=== PATIENT | female | born 1960 | race Caucasian/White ===

== ENCOUNTER 2017-07-17 10:37 | Day surgery (SDC) | payer BC, OTHER ==
[~2017-07-17] VITALS: Ht 158.8 cm; Wt 95.8 kg
[~2017-07-17 10:37] MED LIST: CELEBREX200 MG PO; CYMBALTA30 MG PO; DAILY VALUE1 EACH PO; ENDOCET 10-3251 EACH PO; FISH OIL 1,0001 EAC7 PO; LEXAPRO20 MG PO; LYRICA300 MG PO; OXYCONTIN30 MG PO; SYNTHROID88 MCG PO
== END 2017-07-17 11:55 | disposition home or self-care (01) ==
LOC: PAIN 10:37 → SDC 11:45 → PAIN 11:45
DX: M50.123 Cervical disc disorder at C6-C7 level with radiculopathy (principal); M47.22 Other spondylosis with radiculopathy, cervical region; M54.2 Cervicalgia; G89.29 Other chronic pain; M48.02 Spinal stenosis, cervical region; M79.7 Fibromyalgia; M54.16 Radiculopathy, lumbar region; M48.061 Spinal stenosis, lumbar region without neurogenic claudication; Z98.84 Bariatric surgery status; E66.9 Obesity, unspecified; Z68.37 Body mass index [BMI] 37.0-37.9, adult; Z79.891 Long term (current) use of opiate analgesic
CPT/HCPCS: J1100; J2250; J3010

== ENCOUNTER 2017-08-14 10:21 | Day surgery (SDC) | payer BC, OTHER ==
[~2017-08-14] VITALS: Ht 158.8 cm; Wt 95.7 kg
== END 2017-08-14 12:30 | disposition home or self-care (01) ==
LOC: PAIN 10:21 → SDC 11:00 → PAIN 12:30
DX: M47.22 Other spondylosis with radiculopathy, cervical region (principal); M79.7 Fibromyalgia; M47.26 Other spondylosis with radiculopathy, lumbar region; G89.4 Chronic pain syndrome; E03.9 Hypothyroidism, unspecified; F41.8 Other specified anxiety disorders; Z79.891 Long term (current) use of opiate analgesic; Z88.2 Allergy status to sulfonamides; Z98.84 Bariatric surgery status; E66.9 Obesity, unspecified; Z68.35 Body mass index [BMI] 35.0-35.9, adult
CPT/HCPCS: J1100; J2250; J3010

== ENCOUNTER 2017-10-23 13:40 | Day surgery (SDC) | payer BC, OTHER ==
[~2017-10-23] VITALS: Ht 158.8 cm; Wt 93.9 kg
[~2017-10-23 13:40] MED LIST changes: +ALAVERT10 M1 PO; +BUSPAR5 MG PO
== END 2017-10-23 14:55 | disposition home or self-care (01) ==
LOC: PAIN 13:40
DX: M54.16 Radiculopathy, lumbar region (principal); M47.22 Other spondylosis with radiculopathy, cervical region; G89.29 Other chronic pain; E03.9 Hypothyroidism, unspecified; E66.9 Obesity, unspecified; Z68.37 Body mass index [BMI] 37.0-37.9, adult; F41.9 Anxiety disorder, unspecified; Z88.2 Allergy status to sulfonamides; Z98.84 Bariatric surgery status; Z79.891 Long term (current) use of opiate analgesic
CPT/HCPCS: J1100; J2250; J3010

== ENCOUNTER 2017-11-20 08:28 | Day surgery (SDC) | payer BC, OTHER ==
[~2017-11-20] VITALS: Ht 158.8 cm; Wt 93.9 kg
== END 2017-11-20 09:45 | disposition home or self-care (01) ==
LOC: PAIN 08:28
PROC: 3E0R3BZ Introduction of Anesthetic Agent into Spinal Canal, Percutaneous Approach (ICD-10-PCS; principal; 2017-11-20)
PROC: 3E0R33Z Introduction of Anti-inflammatory into Spinal Canal, Percutaneous Approach (ICD-10-PCS; principal; 2017-11-20)
PROC: B01B1ZZ Fluoroscopy of Spinal Cord using Low Osmolar Contrast (ICD-10-PCS; principal; 2017-11-20)
DX: M47.816 Spondylosis without myelopathy or radiculopathy, lumbar region (principal); M51.16 Intervertebral disc disorders with radiculopathy, lumbar region; M48.061 Spinal stenosis, lumbar region without neurogenic claudication; M47.812 Spondylosis without myelopathy or radiculopathy, cervical region; M79.7 Fibromyalgia; E03.9 Hypothyroidism, unspecified; G89.29 Other chronic pain; Z79.891 Long term (current) use of opiate analgesic; Z88.2 Allergy status to sulfonamides; Z98.84 Bariatric surgery status
CPT/HCPCS: J1100; J2250; J3010